=== PATIENT | male | born 1985 | race Two or more races ===

== ENCOUNTER 2016-11-14 13:37 | Emergency (ER) | payer SELFPAY ==
[2016-11-14] MEDS ORDERED: PROCHLORPERAZINE 5 MG/ML 2 ML VIAL ONE (14:03)
[2016-11-14] MEDS ORDERED: MORPHINE SULFATE 4 MG/ML SYRINGE ONE (14:03)
[2016-11-14 14:17] LABS: ABSOLUTE NEUTROPHIL COUNT 5.9 K/mm3 (1.8-7.7); BASO # 0.1 K/mm3 (0.0-0.2); BASO % 0.7 % (0.2-1.0); EOS % 0.3 % (0.9-2.9); HEMATOCRIT 49.8 % (32.0-52.0); HEMOGLOBIN 16.6 gm/l (14.0-18.0); IMM NEUT% 0.2 % (0-1); LYMPH # 2.2 (1.0-4.8); MEAN CELL VOLUME 90.7 fl (80.0-94.0); MEAN CORPUSCULAR HEMOGLOBIN 30.2 pg (27.0-31.0); MEAN CORPUSCULAR HGB CONC 33.3 g/dl (33.0-37.0); MEAN PLATELET VOLUME 10.3 fl (7.4-10.4); MONO # 0.5 (0.0-0.8); NEUT % 67.8 % (43-75); PLATELET COUNT 293 K/mm3 (130-400); RED CELL DISTRIBUTION WIDTH 13.1 % (11.5-14.5)
[2016-11-14 14:37] LABS: ALB/GLOB RATIO 1.4 (>1.0); ALBUMIN 4.5 gm/dL (3.5-5.7); CALCIUM 9.9 mg/dL (8.6-10.3)
--- NOTE | 2016-11-14 15:15 | US ---
ABDOMINAL-LIMITED: 11/14/2016 2:06 PM CLINICAL HISTORY: Pain and vomiting since yesterday.. STUDY: Limited right upper quadrant ultrasound COMPARISON: none FINDINGS: Gallbladder: Wall thickness: Normal Cholelithiasis: none Pericholecystic Fluid: none Sonographic De La Torre's Sign: negative Bile ducts: Common bile duct measures 5 mm. Limited visualized Liver and RUQ structures: normal IMPRESSION: Prominence to the common bile duct without cholelithiasis or sonographic findings of acute cholecystitis. ERCP or MRCP could be helpful in further evaluation as clinically warranted. Findings were called to Dr. Eli at approximately 1511 hours on 11/14/2016.
[2016-11-14] MEDS ORDERED: FAMOTIDINE 20 MG TABLET ONE (15:28)
[2016-11-14] MEDS ORDERED: MAALOX/LIDO2%VISC/SIMETHICONE 40 ML BOT ONE (15:28)
[2016-11-14] MEDS ORDERED: SUCRALFATE 1 G/10 ML DOSE ONE (15:28)
== END 2016-11-14 15:42 | disposition home or self-care (01) ==
LOC: ED 13:37
DX: R10.10 Upper abdominal pain, unspecified (principal); R11.2 Nausea with vomiting, unspecified; J45.909 Unspecified asthma, uncomplicated
CPT/HCPCS: 83690; 85025; 80053; 76705; 96375; 99284 ×2; 96374; 96361; 93005; A9270 ×3; J0780; J2270

== ENCOUNTER 2016-11-15 17:41 | Emergency (ER) | payer SELFPAY ==
[2016-11-15] MEDS ORDERED: IOPAMIDOL 300 (61%) 100 ML VIAL IV ONE (17:42)
[2016-11-15] MEDS ORDERED: PROCHLORPERAZINE 5 MG/ML 2 ML VIAL ONE (19:20)
[2016-11-15] MEDS ORDERED: MORPHINE SULFATE 4 MG/ML SYRINGE ONE (19:20)
[2016-11-15] MEDS ORDERED: MORPHINE SULFATE 2 MG/ML SYRINGE ONE (19:20)
[2016-11-15 19:50] LABS: ABSOLUTE NEUTROPHIL COUNT 6.3 K/mm3 (1.8-7.7); BASO % 0.5 % (0.2-1.0); EOS % 0.1 % (0.9-2.9); HEMATOCRIT 47.6 % (32.0-52.0); HEMOGLOBIN 15.9 gm/l (14.0-18.0); IMM NEUT% 0.1 % (0-1); LYMPH # 1.2 (1.0-4.8); MEAN CELL VOLUME 90.7 fl (80.0-94.0); MEAN CORPUSCULAR HEMOGLOBIN 30.3 pg (27.0-31.0); MEAN CORPUSCULAR HGB CONC 33.4 g/dl (33.0-37.0); MEAN PLATELET VOLUME 10.4 fl (7.4-10.4); MONO # 0.4 (0.0-0.8); MONO % 4.4 % (4-12); NEUT % 79.9 % (43-75); PLATELET COUNT 264 K/mm3 (130-400); RED CELL DISTRIBUTION WIDTH 12.9 % (11.5-14.5)
[2016-11-15 20:04] LABS: ALB/GLOB RATIO 1.4 (>1.0); ALBUMIN 4.3 gm/dL (3.5-5.7); CALCIUM 9.3 mg/dL (8.6-10.3)
[2016-11-15 20:06] LABS: TROPONIN I < 0.01 ng/ml (0.0-0.06)
[2016-11-15 20:09] LABS: CKMB ISOENZYME 1.8 ng/ml (0.6-6.3)
[2016-11-15 20:14] LABS: SPECIFIC GRAVITY 1.015 (1.001-1.030); URINE BILIRUBIN NEGATIVE (NEGATIVE); URINE BLOOD NEGATIVE (NEGATIVE); URINE GLUCOSE (UA) NEGATIVE (NEGATIVE); URINE LEUKOCYTE ESTERASE NEGATIVE (NEGATIVE); URINE NITRITE NEGATIVE (NEGATIVE); URINE PROTEIN NEGATIVE (NEGATIVE); URINE UROBILINOGEN NORMAL (0-1 mg/dl)
[2016-11-15 20:15] LABS: URINE APPEARANCE SL CLOUDY; URINE COLOR YELLOW
[2016-11-15 20:19] LABS: URINE BACTERIA 0; URINE EPITHELIAL CELLS TRACE /hpf; URINE RBC RARE /hpf; URINE WBC NEG /hpf
[2016-11-15 20:20] LABS: URINE AMORPHOUS SEDIMENT 3+
--- NOTE | 2016-11-15 21:03 | CT ---
Exam Type: ABD/PELVIS W/ CON Date and Time: 11/15/2016 7:19 PM Clinical information: Diffuse abdominal pain for 5 days. Comparison: Abdominal ultrasound 11/14/2016 Technique: Contiguous axial 4 mm images were obtained from the lung bases through the pelvis after the uneventful IV administration of 100 cc of [id number]. Sagittal and coronal reformations with high resolution lung algorithm images were also obtained at this time. CT DI: 8.8 DLP 445.9 FINDINGS: Lung base : Dependent and atelectatic changes are noted at the lung bases. Calcified granuloma measuring 4 mm present on image 3 within the right lower lobe. No other nodular density is identified. Visualized heart:There is no pericardial effusion. LIVER: within normal limits. BILE DUCTS: normal caliber. GALLBLADDER: No calcified gallstones. Normal caliber wall. PANCREAS: within normal limits. SPLEEN: within normal limits. ADRENALS: within normal limits. KIDNEYS: within normal limits. Stomach and small BOWEL: There may be a small hiatal hernia. Otherwise stomach and small bowel are normal. Large bowel: Air and stool are noted within the large bowel. Appendix is normal. Much of the distal large bowel is decompressed limiting assessment. Diverticulosis without diverticulitis or abscess formation. LYMPH NODES: No enlarged mesenteric lymph nodes. PERITONEUM: no ascites or free air, no fluid collection. VESSELS: within normal limits RETROPERITONEUM: within normal limits. ABDOMINAL WALL: within normal limits. Bladder: Normal BONES: Streak artifact from the malleable sideplate with screw fixation along the posterior lateral acetabulum on the right. Posttraumatic changes are noted in this region. No fracture or dislocation. No lytic lesions. Spine maintains anatomic alignment. IMPRESSION: No acute inflammatory process is noted within the abdomen or pelvis. Incidental findings as above. Close clinical and radiographic follow up are noted. Findings were called to Dr. Eli at approximately 2058 hours on 11/15/2016.
--- NOTE | 2016-11-15 21:05 | RAD ---
11/15/2016 9:01 PM CHEST - 2 VIEWS History: Abdominal pain and vomiting. Comparison: None Findings: Two views of the chest are obtained. The lungs low volumes are noted with probable atelectasis at the lung bases. The cardiomediastinal silhouette is unremarkable.. The osseous structures are intact.. IMPRESSION: Low volumes without discrete pathology. CT abdomen and pelvis is to follow..
[2016-11-15] MEDS ORDERED: HALOPERIDOL LACTATE 5 MG/1 ML AMP ONE (21:42)
[2016-11-15] MEDS ORDERED: MAALOX/LIDO2%VISC/SIMETHICONE 40 ML BOT ONE (21:51)
[2016-11-15] MEDS ORDERED: SUCRALFATE 1 G/10 ML DOSE ONE (21:51)
[2016-11-15] MEDS ORDERED: FAMOTIDINE 10 MG/ML 2ML VIAL ONE (21:51)
== END 2016-11-15 23:13 | disposition home or self-care (01) ==
LOC: ED 17:41
DX: K29.70 Gastritis, unspecified, without bleeding (principal); R11.2 Nausea with vomiting, unspecified; J45.909 Unspecified asthma, uncomplicated
CPT/HCPCS: 83605; 83690; 85025; 82553; 80053; 83735; 87880; 84484; 81001; 71020; 74177; 96375 ×3; 99284 ×2; 96374; 96361 ×3; 93005; A9270 ×2; J0780; J1630; J2270 ×2; Q9967